=== PATIENT | female | born 1995 | race American Indian/Alaskan Native ===

== ENCOUNTER 2020-01-17 20:34 | Emergency (ER) | payer MEDICAID ==
[2020-01-17 22:26] VITALS: BP 135/86
[2020-01-18] MEDS ORDERED: HYDROcodone/ACETAMINOPHEN 5-325 MG TAB PO ONE (03:43)
[2020-01-18] MEDS ORDERED: ONDANSETRON 4 MG ODT TAB PO ONE (03:43)
[2020-01-18] MEDS ORDERED: IBUPROFEN 600 MG TAB PO ONE (03:43)
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
== END 2020-01-18 04:32 | disposition home or self-care (01) ==
LOC: ED 20:34
DX: T23.121A Burn of first degree of single right finger (nail) except thumb, initial encounter (principal); Z90.49 Acquired absence of other specified parts of digestive tract; Z79.1 Long term (current) use of non-steroidal anti-inflammatories (NSAID); Z79.2 Long term (current) use of antibiotics; Z79.899 Other long term (current) drug therapy; Z88.0 Allergy status to penicillin; X58.XXXA Exposure to other specified factors, initial encounter; Y93.89 Activity, other specified; Y92.89 Other specified places as the place of occurrence of the external cause; Y99.8 Other external cause status
CPT/HCPCS: 99282; Q0162

== ENCOUNTER 2020-05-31 15:12 | Emergency (ER) | payer MEDICAID ==
[2020-05-31 17:49] VITALS: BP 120/90
[2020-05-31] MEDS ORDERED: ONDANSETRON 4 MG/2 ML INJ IV ONE (19:35)
[2020-05-31] MEDS ORDERED: MORPHINE 4 MG/1 ML INJ IV ONE (19:35)
[2020-05-31] MEDS ORDERED: SODIUM CHLORIDE 0.9% 1000 ML 1,000 ML IV ONE (19:36)
--- NOTE | 2020-05-31 19:38 | Emergency Department Report ---
ED Female HPI - General Chief complaint: Vaginal Bleeding Stated complaint: ABD PAINS BLEEDING Source: patient Mode of arrival: Ambulatory Limitations: No Limitations - History of Present Illness Initial comments: Patient is a A0 25-year-old female with past medical history of anemia due to blood loss requiring transfusion who presents to the ED with complaint of persistent vaginal bleeding for the last 21 days. Patient states that her LMP was April 09, 2020, and that she is also started bleeding again, and which she suspected was her menstrual cycle. Patient states that the bleeding has been persistent, heavy with pelvic pain occasional nausea and vomiting. Patient denies, headache, chest pain, shortness of breath, dysuria, urinary frequency and urgency, vaginal discharge, low back pain, fever or chills. MD Complaint: vaginal bleeding, pelvic pain, other (nausea, vomiting) -: Sudden, week(s) (3) Location: suprapubic, other (vaginal) Radiation: suprapubic, LLQ Severity: severe Severity scale (0 -10): 8 Quality: cramping, sharp Consistency: constant Improves with: none Worsens with: movement, other (palpation) Are you Now?: No Last Menstrual Period: 04/09/20 EDC: 01/14/21 Associated Symptoms: denies other symptoms, vaginal bleeding, abdominal pain (pelvic pain), nausea/vomiting, hematuria. denies: vaginal discharge, fever/chills, headaches, dysuria, rash, seizure, shortness of breath, syncope, weakness - Related Data Sexually active: Yes : 3 Para: 3 A: 0 Previous Rx's Medication Instructions Recorded Last Taken Type Ciprofloxacin HCl [Ciprofloxacin 500 mg PO Q12HR #20 tab 08/31/19 Unknown Rx TAB] Ketorolac [Toradol] 10 mg PO Q6H PRN #14 tablet 08/31/19 Unknown Rx Acetaminophen/Codeine [Tylenol 1 tab PO Q6H PRN #12 tab 01/18/20 Unknown Rx /Codeine # 3 tab] Ibuprofen [Motrin] 600 mg PO Q8H PRN #30 tablet 01/18/20 Unknown Rx Ibuprofen [Motrin] 800 mg PO Q8HR PRN #30 tablet 05/31/20 Unknown Rx Ondansetron [Zofran Odt] 4 mg PO Q8HR PRN #15 tab.rapdis 05/31/20 Unknown Rx medroxyPROGESTERone ACETATE 10 mg PO DAILY #10 tablet 05/31/20 Unknown Rx [Provera] Allergies Allergy/AdvReac Type Severity Reaction Status Date / Time Penicillins Allergy Unknown Verified 08/31/19 15:45 ED Review of Systems ROS: Stated complaint: ABD PAINS BLEEDING Other details as noted in HPI Constitutional: denies: chills, fever Eyes: denies: eye pain, eye discharge, vision change ENT: denies: ear pain, throat pain Respiratory: denies: cough, shortness of breath, wheezing Cardiovascular: denies: chest pain, palpitations Endocrine: no symptoms reported Gastrointestinal: abdominal pain (Suprapubic pain), nausea, vomiting. denies: diarrhea Genitourinary: abnormal menses (Heavy vaginal bleeding). denies: urgency, dysuria, discharge Musculoskeletal: denies: back pain, joint swelling, arthralgia Skin: denies: rash, lesions Neurological: denies: headache, weakness, paresthesias Psychiatric: denies: anxiety, depression Hematological/Lymphatic: denies: easy bleeding, easy bruising ED Past Medical Hx - Past Medical History Previous Medical History?: Yes Additional medical history: ANEMIA, VAGINAL BLEEDING - Surgical History Hx Cholecystectomy: Yes - Social History Smoking Status: Never Smoker Substance Use Type: None - Medications Home Medications: Home Medications Medication Instructions Recorded Confirmed Last Taken Type Ciprofloxacin HCl [Ciprofloxacin 500 mg PO Q12HR #20 tab 08/31/19 Unknown Rx TAB] Ketorolac [Toradol] 10 mg PO Q6H PRN #14 tablet 08/31/19 Unknown Rx Acetaminophen/Codeine [Tylenol 1 tab PO Q6H PRN #12 tab 01/18/20 Unknown Rx /Codeine # 3 tab] Ibuprofen [Motrin] 600 mg PO Q8H PRN #30 tablet 01/18/20 Unknown Rx Ibuprofen [Motrin] 800 mg PO Q8HR PRN #30 tablet 05/31/20 Unknown Rx Ondansetron [Zofran Odt] 4 mg PO Q8HR PRN #15 tab.rapdis 05/31/20 Unknown Rx medroxyPROGESTERone ACETATE 10 mg PO DAILY #10 tablet 05/31/20 Unknown Rx [Provera] ED Physical Exam - General Limitations: No Limitations General appearance: alert, in no apparent distress - Head Head exam: Present: atraumatic, normocephalic, normal inspection - Eye Eye exam: Present: normal appearance, PERRL, EOMI Pupils: Present: normal accommodation - ENT ENT exam: Present: normal exam, normal orophraynx, mucous membranes moist, TM's normal bilaterally, normal external ear exam - Neck Neck exam: Present: normal inspection, full ROM - Respiratory Respiratory exam: Present: normal lung sounds bilaterally. Absent: respiratory distress, wheezes, rales, rhonchi, chest wall tenderness, accessory muscle use, decreased breath sounds - Cardiovascular Cardiovascular Exam: Present: regular rate, normal rhythm, normal heart sounds. Absent: systolic murmur, diastolic murmur, rubs, gallop - GI/Abdominal GI/Abdominal exam: Present: soft, tenderness (Palpable mild suprapubic tenderness, no guarding), normal bowel sounds. Absent: guarding, rebound, hyperactive bowel sounds, hypoactive bowel sounds, organomegaly - Bi-manual exam: Present: other (Pelvic exam deferred at this time) - Extremities Exam Extremities exam: Present: normal inspection, full ROM, normal capillary refill - Back Exam Back exam: Present: normal inspection, full ROM. Absent: tenderness, CVA tenderness (R), CVA tenderness (L), muscle spasm, paraspinal tenderness, vertebral tenderness, rash noted - Neurological Exam Neurological exam: Present: alert, oriented X3, CN II-XII intact, normal gait, reflexes normal - Psychiatric Psychiatric exam: Present: normal affect, normal mood - Skin Skin exam: Present: warm, dry, intact, normal color. Absent: rash ED Course Vital Signs 05/31/20 17:48 Temperature 98.7 F Pulse Rate 90 Respiratory 18 Rate Blood Pressure 120/90 [Right] O2 Sat by Pulse 100 Oximetry ED Medical Decision Making - Lab Data Result diagrams: 05/31/20 19:58 05/31/20 19:58 - Radiology Data Radiology results: report reviewed, image reviewed [facility] [address] [place] [address] Ultrasound Report Signed Patient: LYLY COELLO MR#: [id number] 51 : 1995 Acct:[id number] Age/Sex: 25 / F ADM Date: 05/31/20 Loc: ED Attending Dr: Ordering Physician: ROSALINO CRISOSTOMO Date of Service: 04/26/21 Procedure(s): US pelvic complete Accession Number(s): [id number] cc: ROSALINO CRISOSTOMO ULTRASOUND PELVIS INDICATION / CLINICAL INFORMATION: Pelvic pain, heavy vaginal bleeding. TECHNIQUE: Transabdominal. Duplex Color Doppler used: Yes. COMPARISON: None available FINDINGS: UTERUS: Measures 9.1 x 4.1 x 5.0 cm. Endometrial thickness is difficult to accurately determine on this examination, however appears to be approximately 1.6 cm. Although, mild endometrial thickening may be present. RIGHT ADNEXA: No significant ovarian cyst or mass. Normal color Doppler blood flow. LEFT ADNEXA: No significant ovarian cyst or mass. Normal color Doppler blood flow. URINARY BLADDER: No significant abnormality. FREE FLUID: None. ADDITIONAL FINDINGS: None. IMPRESSION: 1. Possible mild endometrial thickening, noting that the exact thickness is difficult to determine on this examination. Consider further follow-up and evaluation, as warranted. No evidence of acute pelvic abnormality. Signer Name: Margie Hernadez MD Signed: 05/31/2020 9:39 PM Workstation Name: [id number] Transcribed By: Dictated By: MARGIE HERNADEZ III Electronically Authenticated By: MARGIE HERNADEZ III Signed Date/Time: 05/31/202138 DD/ 35 TD/TT: Print Cancel - Medical Decision Making This is a A0 25-year-old female with past medical history of anemia requiring from heavy blood loss who presents to the ED with complaint of persistent vaginal bleeding for the last 21 days. Patient states that her LMP was April 09, 2020, and that she is also started bleeding again, and which she suspected was her menstrual cycle. Patient states that the bleeding has been persistent, heavy with pelvic pain occasional nausea and vomiting. In the ED, patient is alert and oriented x3 and is not in any distress. Lab test results were reviewed and are all nonactionable. Patient was treated for pain in the ED and pelvic ultrasound showed possible mild endometrial thickening, noting that the exact thickness is difficult to determine on this examination, follow-up with [facility] advised. On reevaluation, patient's pain is well controlled medications. Patient symptoms are likely due to dysfunctional uterine bleeding. Patient was therefore discharged home on medications and advised to follow-up with her [facility] physician in 7 to 10 days for reevaluation. Patient was also advised to return to the ED immediately if her symptoms get worse. - Differential Diagnosis DUB; ; UTI; kidney stone; ovarian cyst; fibroids Critical care attestation.: If time is entered above; I have spent that time in minutes in the direct care of this critically ill patient, excluding procedure time. ED Disposition Clinical Impression: Dysfunctional uterine hemorrhage, Nausea and vomiting in adult patient, Menometrorrhagia, Dysmenorrhea Disposition: TO HOME OR SELFCARE Is pt being admited?: No Does the pt Need Aspirin: No Condition: Stable Instructions: Abnormal Uterine Bleeding, [id number], Menorrhagia, Easy-to- Read, Nausea and Vomiting, Adult, [id number], Metrorrhagia, [id number] Additional Instructions: All lab test results were reviewed and are all nonactionable. Pelvic ultrasound showed thickness in the endometrium is a nonspecific finding. Therefore take medications with food, drink plenty of fluids and follow-up with your [facility] physician in 7 to 10 days for reevaluation. Return to the ED immediately if symptoms get worse. Prescriptions: Ibuprofen [Motrin] 800 mg PO Q8HR PRN #30 tablet PRN Reason: Pain , Severe (7-10) medroxyPROGESTERone ACETATE [Provera] 10 mg PO DAILY #10 tablet Ondansetron [Zofran Odt] 4 mg PO Q8HR PRN #15 tab.rapdis PRN Reason: Nausea Referrals: FLAKITO WATKINS JR, MD [Primary Care Provider] - 3-5 Days Time of Disposition: 22:33 Print Language: CHILEAN
[2020-05-31 19:54] LABS: Bilirubin,Urine NEG (Negative); Blood,Urine LG (Negative); Color,Urine Yellow (Yellow); Mucus,Urine 2+ /HPF; Urobilinogen,Urine < 2.0 mg/dL (<2.0)
[2020-05-31 19:56] LABS: RBC,Urine > 182.0 /HPF (0.0-6.0)
[2020-05-31 20:16] LABS: Basophils % (Auto) 0.3 % (0.0-1.8); Eosinophils % (Auto) 0.6 % (0.0-4.3); Hematocrit 36.8 % (30.3-42.9); Hemoglobin 12.6 gm/dl (10.1-14.3); Lymphocytes # (Auto) 2.6 K/mm3 (1.2-5.4); Lymphocytes % (Auto) 48.2 % (13.4-35.0); Mean Corpuscular HGB Conc 34 % (30-34); Mean Corpuscular Volume 90 fl (79-97); Monocytes # (Auto) 0.4 K/mm3 (0.0-0.8); Monocytes % (Auto) 7.8 % (0.0-7.3); Platelet Count 257 K/mm3 (140-440); Red Blood Count 4.08 M/mm3 (3.65-5.03); Red Cell Distribution Width 13.4 % (13.2-15.2)
[2020-05-31 20:30] LABS: Alanine Aminotransferase 19 units/L (7-56); Albumin 4.6 g/dL (3.9-5); Blood Urea Nitrogen 9 mg/dL (7-17); Hemolysis Index 9
[2020-05-31 20:48] LABS: BUN/Creatinine Ratio 15
--- NOTE | 2020-05-31 21:43 | Ultrasound Report ---
ULTRASOUND PELVIS INDICATION / CLINICAL INFORMATION: Pelvic pain, heavy vaginal bleeding. TECHNIQUE: Transabdominal. Duplex Color Doppler used: Yes. COMPARISON: None available FINDINGS: UTERUS: Measures 9.1 x 4.1 x 5.0 cm. Endometrial thickness is difficult to accurately determine on th is examination, however appears to be approximately 1.6 cm. Although, mild endometrial thickening may be present. RIGHT ADNEXA: No significant ovarian cyst or mass. Normal color Doppler blood flow. LEFT ADNEXA: No significant ovarian cyst or mass. Normal color Doppler blood flow. URINARY BLADDER: No significant abnormality. FREE FLUID: None. ADDITIONAL FINDINGS: None. IMPRESSION: 1. Possible mild endometrial thickening, noting that the exact thickness is difficult to determine on this examination. Consider further follow-up and evaluation, as warranted. No evidence of acute pelv ic abnormality. Signer Name: Mk Hernadez MD Signed: 05/31/2020 9:39 PM Workstation Name: [id number]
== END 2020-05-31 23:05 | disposition home or self-care (01) ==
LOC: ED 15:12
DX: N93.8 Other specified abnormal uterine and vaginal bleeding (principal); N94.6 Dysmenorrhea, unspecified; N92.1 Excessive and frequent menstruation with irregular cycle; R11.2 Nausea with vomiting, unspecified; Z90.49 Acquired absence of other specified parts of digestive tract; Z79.1 Long term (current) use of non-steroidal anti-inflammatories (NSAID); Z79.2 Long term (current) use of antibiotics; Z79.899 Other long term (current) drug therapy; Z88.0 Allergy status to penicillin
CPT/HCPCS: 36415; 76856; 80053; 81001; 84703; 85025; 96361; 96374; 96375; 99284; J2270; J2405; J7030

== ENCOUNTER 2020-10-13 12:55 | Emergency (ER) | payer MEDICAID ==
--- NOTE | 2020-10-13 15:35 | Emergency Department Report ---
ED Female HPI - General Stated complaint: HEAVY VAG BLEEDING Time Seen by Provider: 10/13/20 15:30 - History of Present Illness Initial comments: The patient was evaluated in the emergency department for symptoms described in the history of present illness. He/she was evaluated in the context of the global COVID-19 pandemic, which necessitated consideration that the patient might be at risk for infection with the virus that causes COVID-19. Insti tutional protocols and algorithms that pertain to the evaluation of patients at risk for COVID-19 are in a state of rapid change based on information released by regulatory bodies including the CDC and federal and state organizations. These policies and algorithms were followed during the patient's care in the emergency department. Please note that these policies, procedures and recommendations changed on a rapid basis. 25-year-old -[place] female presents to the emergency room stating she started having very heavy vaginal bleeding on Sunday. Patient complains of best pelvic aching no cramps. She states that she has been breast-feeding for the last 2 years. She states that her. Was last on June 03, 2020 and prior to that April 20, 2020. Patient is 3 para to 3. Patient is currently on no control at this time. She states that she is followed by [facility] on [facility]. Complaint: vaginal bleeding, pelvic pain Onset/Timin -: days(s) Location: suprapubic Severity scale (0 -10): 6 Quality: aching Consistency: constant Improves with: none Worsens with: none Are you Now?: No Associated Symptoms: vaginal bleeding - Related Data Sexually active: Yes : 3 Para: 3 Previous Rx's Medication Instructions Recorded Last Taken Type Ciprofloxacin HCl [Ciprofloxacin 500 mg PO Q12HR #20 tab 08/31/19 Unknown Rx TAB] Ketorolac [Toradol] 10 mg PO Q6H PRN #14 tablet 08/31/19 Unknown Rx Acetaminophen/Codeine [Tylenol 1 tab PO Q6H PRN #12 tab 01/18/20 Unknown Rx /Codeine # 3 tab] Ibuprofen [Motrin] 600 mg PO Q8H PRN #30 tablet 01/18/20 Unknown Rx Ibuprofen [Motrin] 800 mg PO Q8HR PRN #30 tablet 05/31/20 Unknown Rx Ondansetron [Zofran Odt] 4 mg PO Q8HR PRN #15 tab.rapdis 05/31/20 Unknown Rx medroxyPROGESTERone ACETATE 10 mg PO DAILY #10 tablet 05/31/20 Unknown Rx [Provera] Allergies Allergy/AdvReac Type Severity Reaction Status Date / Time Penicillins Allergy Unknown Verified 08/31/19 15:45 ED Review of Systems ROS: Stated complaint: HEAVY VAG BLEEDING Other details as noted in HPI Comment: All other systems reviewed and negative ED Past Medical Hx - Past Medical History Additional medical history: ANEMIA, VAGINAL BLEEDING - Surgical History Hx Cholecystectomy: Yes - Social History Smoking Status: Never Smoker Substance Use Type: None - Medications Home Medications: Home Medications Medication Instructions Recorded Confirmed Last Taken Type Ciprofloxacin HCl [Ciprofloxacin 500 mg PO Q12HR #20 tab 08/31/19 Unknown Rx TAB] Ketorolac [Toradol] 10 mg PO Q6H PRN #14 tablet 08/31/19 Unknown Rx Acetaminophen/Codeine [Tylenol 1 tab PO Q6H PRN #12 tab 01/18/20 Unknown Rx /Codeine # 3 tab] Ibuprofen [Motrin] 600 mg PO Q8H PRN #30 tablet 01/18/20 Unknown Rx Ibuprofen [Motrin] 800 mg PO Q8HR PRN #30 tablet 05/31/20 Unknown Rx Ondansetron [Zofran Odt] 4 mg PO Q8HR PRN #15 tab.rapdis 05/31/20 Unknown Rx medroxyPROGESTERone ACETATE 10 mg PO DAILY #10 tablet 05/31/20 Unknown Rx [Provera] ED Physical Exam - General General appearance: alert, in no apparent distress, obese - Head Head exam: Present: atraumatic, normocephalic - Eye Eye exam: Present: normal appearance - ENT ENT exam: Present: mucous membranes moist - Neck Neck exam: Present: normal inspection - Respiratory Respiratory exam: Present: normal lung sounds bilaterally. Absent: respiratory distress - Cardiovascular Cardiovascular Exam: Present: regular rate, normal rhythm. Absent: systolic murmur, diastolic murmur, rubs, gallop - GI/Abdominal GI/Abdominal exam: Present: soft, normal bowel sounds - Extremities Exam Extremities exam: Present: normal inspection - Back Exam Back exam: Present: normal inspection - Neurological Exam Neurological exam: Present: alert, oriented X3 - Psychiatric Psychiatric exam: Present: normal affect, normal mood - Skin Skin exam: Present: warm, dry, intact, normal color. Absent: rash ED Course Vital Signs 10/13/20 15:47 Temperature 98.3 F Pulse Rate 82 Respiratory 18 Rate Blood Pressure 123/76 [Right] O2 Sat by Pulse 98 Oximetry ED Medical Decision Making - Lab Data Result diagrams: 10/13/20 16:09 10/13/20 16:09 - Medical Decision Making 25-year-old -[place] female presents to the emergency room stating she started having very heavy vaginal bleeding on Sunday. Patient complains of best pelvic aching no cramps. She states that she has been breast-feeding for the last 2 years. She states that her. Was last on June 03, 2020 and prior to that April 20, 2020. Patient is 3 para to 3. Patient is currently on no control at this time. She states that she is followed by [facility] on [facility]. CBC CMP urinalysis hCG serum. Labs are stable shows no signs of anemia. Urinalysis negative for any infection. Patient has abnormal uterine bleeding. Recommend for her to follow- up with her URGENT CARE PHYSICIAN ASSISTANT to discuss about getting on control. Critical care attestation.: If time is entered above; I have spent that time in minutes in the direct care of this critically ill patient, excluding procedure time. ED Disposition Clinical Impression: Abnormal uterine bleeding (AUB) Disposition: 01 HOME / SELF CARE / HOMELESS Is pt being admited?: No Does the pt Need Aspirin: No Condition: Stable Instructions: Abnormal Uterine Bleeding, [id number] Additional Instructions: All your lab work are stable. Recommend to follow-up with the URGENT CARE PHYSICIAN ASSISTANT or your primary care provider to discuss maybe being placed on control. Referrals: [facility] [Provider Group] - 3-5 Days [facility] [Provider Group] - 3-5 Days Forms: Work/School Release Form(ED) Time of Disposition: 17:29
[2020-10-13 15:49] VITALS: BP 123/76
[2020-10-13 15:57] LABS: Bilirubin,Urine NEG (Negative); Blood,Urine LG (Negative); Color,Urine Yellow (Yellow); Mucus,Urine 1+ /HPF; Urobilinogen,Urine < 2.0 mg/dL (<2.0); WBC,Urine < 1.0 /HPF (0.0-6.0)
[2020-10-13 15:58] LABS: RBC,Urine > 182.0 /HPF (0.0-6.0)
[2020-10-13 16:42] LABS: Basophils % (Auto) 0.8 % (0.0-1.8); Eosinophils # (Auto) 0.1 K/mm3 (0.0-0.4); Eosinophils % (Auto) 1.5 % (0.0-4.3); Hematocrit 36.4 % (30.3-42.9); Hemoglobin 12.3 gm/dl (10.1-14.3); Lymphocytes # (Auto) 2.9 K/mm3 (1.2-5.4); Lymphocytes % (Auto) 44.5 % (13.4-35.0); Mean Corpuscular HGB Conc 34 % (30-34); Mean Corpuscular Volume 86 fl (79-97); Monocytes # (Auto) 0.4 K/mm3 (0.0-0.8); Monocytes % (Auto) 5.8 % (0.0-7.3); Platelet Count 293 K/mm3 (140-440); Red Blood Count 4.21 M/mm3 (3.65-5.03); Red Cell Distribution Width 15.5 % (13.2-15.2)
[2020-10-13 16:45] LABS: Alanine Aminotransferase 18 units/L (7-56); Albumin 4.4 g/dL (3.9-5); Blood Urea Nitrogen 16 mg/dL (7-17); Calcium 9.1 mg/dL (8.4-10.2); Hemolysis Index 2
[2020-10-13 16:46] LABS: BUN/Creatinine Ratio 27
== END 2020-10-13 19:15 | disposition home or self-care (01) ==
LOC: ED 12:55
DX: N93.9 Abnormal uterine and vaginal bleeding, unspecified (principal); Z88.0 Allergy status to penicillin
CPT/HCPCS: 36415; 80053; 81001; 84702; 85025; 99283